=== PATIENT | female | born 1950 | race Caucasian/White ===

== ENCOUNTER 2019-02-03 16:39 | Inpatient (IN) | payer MEDICARE ==
[~2019-02-03 16:39] MED LIST: ISOVUE-370 76%-LOCM 1 ML ONE
[2019-02-03 17:25] LABS: #Lymphocytes 1.2 thou/uL (1.20-3.40); #Monocytes 0.7 thou/uL (0.11-0.59); #Neutrophils 16.2 thou/uL (1.40-6.50); %Basophils 0.2 % (0.0-1.0); %Eosinophils 0.2 % (0.0-10.0); %Lymphocytes 6.4 % (21.0-51.0); %Monocytes 3.8 % (0.0-10.0); %Neutrophils 89.5 % (42.0-75.0); Hemoglobin 15.6 g/dL (12.0-16.0); Mean Corpuscular HGB CONC 34.8 g/dL (32.0-36.0); Mean Corpuscular Hemoglobin 31.3 pg (27.0-31.0); Mean Platelet Volume 6.7 fL (7.4-10.4); Platelet Count 271 thou/uL (130-400); RBC Distribution Width 11.7 % (11.5-14.5); Red Blood Cell (RBC) Count 4.98 mill/uL (4.20-5.40); White Blood Cell (WBC) Count 18.1 thou/uL (4.8-10.8)
[2019-02-03 17:47] LABS: ALT (SGPT) 18 U/L (8-55); AST (SGOT) 23 U/L (5-34); Albumin 4.3 g/dL (3.4-4.8); Alkaline Phosphatase 105 U/L (40-110); Anion Gap 16 mmol/L (10-20); BUN (Urea Nitrogen) 14 mg/dL (9.8-20.1); Bilirubin, Total 0.6 mg/dL (0.2-1.2); Calc. Creatinine Clearance 0 mL/min (70-130); Calcium 9.6 mg/dL (7.8-10.44); Carbon Dioxide 24 mmol/L (23-31); Chloride 104 mmol/L (98-107); Estimated GFR-MDRD 75; Globulin 3.3 g/dL (2.4-3.5); Glucose 118 mg/dL (80-115); Potassium 3.8 mmol/L (3.5-5.1); Protein, Total 7.6 g/dL (6.0-8.3); Sodium 140 mmol/L (136-145)
[2019-02-03] MEDS ORDERED: Famotidine/PF 20 mg/2ml Vial ONE (18:02)
[2019-02-03] MEDS ORDERED: Ondansetron PF 4 MG/2 ML Vial ONE (18:02)
[2019-02-03 19:15] LABS: Bacteria/HPF None Seen HPF (None Seen); Bilirubin Negative (Negative); Blood, Urine 2+ (Negative); Clarity Clear (Clear); Glucose, Urine (Dipstick) Normal (Negative); Leukocyte 75 Leu/uL (Negative); Nitrite Negative (Negative); Protein, Urine (Dipstick) Negative (Neg-Trace); Squamous Epithelial 0-3 HPF (0-3); Urobilinogen Normal mg/dL (Less than 2)
[2019-02-03] MEDS ORDERED: Acetaminophen 650 MG Suppository PR PRN (19:40)
[2019-02-03] MEDS ORDERED: Acetaminophen 325 MG TAB PO PRN (19:40)
[2019-02-03] MEDS ORDERED: Ondansetron ODT 4 MG TAB PO PRN (19:40)
[2019-02-03] MEDS ORDERED: Ondansetron PF 4 MG/2 ML Vial IVP PRN (19:40)
[2019-02-03] MEDS ORDERED: metroNIDAZOLE 500 MG/100 ML BAG ONE (19:44)
[2019-02-03] MEDS ORDERED: Pantoprazole 40 MG VIAL ONE (19:47)
--- NOTE | 2019-02-03 20:40 | CT ---
CT ABDOMEN AND PELVIS WITH CONTRAST: Indications: Abdominal pain, vomiting, diarrhea. Comparison: None. FINDINGS: Images through the lung bases reveal pleural based stranding in the right posterior lung base with a nodular appearance measuring up to 12 mm. This is probably pleural based atelectasis, however, follow up is recommended. Review of the liver shows a small cyst in the superior right lobe under the diaphragm. This measures approximately 1 cm. A small 1 cm left lobe cyst is also noted superiorly. Liver, spleen, and pancreas otherwise unremarkable. Post cholecystectomy clips. Adrenal glands normal. Kidneys unremarkable. Tiny cystic lesion subcentimeter inferior right kidney. Tiny subcentimeter low density lesion anterior left kidney. Small bowel loops are normal caliber. Nonspecific fluid filled distention seen in the mid small bowel . Fluid dense stool in the right colon consistent with the history of diarrhea. There is evidence of mural thickening surrounding inflammatory change involving the left colon extend ing into the sigmoid. The left colon is nondistended and the colon wall is suboptimally evaluated due to the lack of distention. Findings suggest colitis involving the left colon. Aorta is calcified but normal caliber. IMPRESSION: 1. Evidence of mural thickening and surrounding inflammatory haziness involving the left colon and si gmoid suggesting colitis. 2. Pleural based nodular opacity in the posterior right lung base, probably atelectasis. Follow up re commended. Code LN POS: OFF
[2019-02-03] MEDS: metroNIDAZOLE 500 MG in Premix Bag 1 BAG IVPB SCH ×3 (20:53→21:05)
[2019-02-03 21:29] VITALS: BMI 35.2
[2019-02-04] MEDS: Sodium Chloride 0.9% 1,000 ML IV SCH ×2 (00:22→16:15)
[2019-02-04] MEDS: metroNIDAZOLE 500 MG in Premix Bag 1 BAG IVPB SCH ×3 (03:10→20:12)
[2019-02-04 05:29] LABS: #Lymphocytes 2.2 thou/uL (1.20-3.40); #Monocytes 1.3 thou/uL (0.11-0.59); %Basophils 0.3 % (0.0-1.0); %Eosinophils 0.3 % (0.0-10.0); %Lymphocytes 14.7 % (21.0-51.0); %Monocytes 9.1 % (0.0-10.0); %Neutrophils 75.6 % (42.0-75.0); Hemoglobin 14.1 g/dL (12.0-16.0); Mean Corpuscular Hemoglobin 30.7 pg (27.0-31.0); Mean Corpuscular Volume 90.2 fL (78.0-98.0); Mean Platelet Volume 6.6 fL (7.4-10.4); Platelet Count 253 thou/uL (130-400); RBC Distribution Width 11.8 % (11.5-14.5); Red Blood Cell (RBC) Count 4.61 mill/uL (4.20-5.40); White Blood Cell (WBC) Count 14.6 thou/uL (4.8-10.8)
[2019-02-04 05:52] LABS: Anion Gap 10 mmol/L (10-20); BUN (Urea Nitrogen) 9 mg/dL (9.8-20.1); Calc. Creatinine Clearance 108 mL/min (70-130); Calcium 8.9 mg/dL (7.8-10.44); Carbon Dioxide 27 mmol/L (23-31); Chloride 106 mmol/L (98-107); Estimated GFR-MDRD 81; Glucose 112 mg/dL (80-115); Potassium 3.6 mmol/L (3.5-5.1); Sodium 139 mmol/L (136-145)
--- NOTE | 2019-02-04 08:18 | HP ---
PRIMARY CARE PHYSICIAN: Not reported. CODE STATUS: Full code. TIME OF EVALUATION: 9 p.m. CHIEF COMPLAINT: Abdominal pain. HISTORY OF PRESENT ILLNESS: This is a 68-year-old female patient with past medical history of cardiac cath in 2016, sleep apnea, hypothyroidism, hyperlipidemia, hypertension, asthma, came to the hospital after having moderate gradually worsening abdominal pain associated with diarrhea, nausea, and vomiting. Also she had bright red blood seen in the stools, no clear triggers. No alleviating factors. REVIEW OF SYSTEMS: CONSTITUTIONAL: No fever, no chills, no generalized weakness. RESPIRATORY: No cough, no shortness of breath. CARDIOVASCULAR: No chest pain or palpitation. GASTROINTESTINAL: The patient has nausea, vomiting, abdominal pain and bloody diarrhea. BOAT JOINER: No dizziness, headache or feeling lightheaded. GENITOURINARY: No burning urination. EXTREMITIES: No leg swelling. All other systems were reviewed and negative except for the findings mentioned above. PAST MEDICAL HISTORY: Positive for the findings mentioned in HPI. PAST SURGICAL HISTORY: Knee surgery, heart catheterization, left knee replacement, bladder removal, cholecystectomy. PSYCHIATRIC HISTORY: Depression. FAMILY HISTORY: Reviewed, noncontributory for current presentation. SOCIAL HISTORY: The patient lives with . KNOWN ALLERGIES: Dilaudid. REPORTED MEDICATION: 1. Levothyroxine. 2. Quinapril. 3. Ranitidine. 4. Montelukast. 5. Oxybutynin. 6. Aspirin. 7. Citalopram. PHYSICAL EXAMINATION: VITAL SIGNS: On presentation, blood pressure 129/66, heart rate 82, respiratory rate was 16, temperature 98.3, pain 8/10, O2 saturation was 99% on room air, the blood pressure remained occasionally uncontrolled, last one was 149, previous 154. GENERAL APPEARANCE: The patient is alert, oriented, no acute distress. HEENT: Eyes, normal conjunctivae. Moist oral mucosa. Anicteric. No JVD. RESPIRATORY: Bilateral air entry. No rales. No wheezes. Symmetric expansion. CARDIOVASCULAR: Normal rate. Regular rhythm. No murmurs. No gallop. No edema. ABDOMEN: Soft, normal bowel sounds. The patient has abdominal tenderness mostly in the lower abdomen. MUSCULOSKELETAL: Baseline range of motion and strength. SKIN: Warm, intact. No pallor. No rash. No redness. Capillary refill seems to be intact. NEUROLOGIC: No evidence of any new focal weakness. Cranial nerves seems to be intact. PSYCHIATRIC: The patient is in good mood. No anxiety. Optimal judgment. IMAGING: EKG was reviewed. The patient has a first-degree AV block, minimal voltage criteria for LVH. Per radiologist, pleural base thickening, possible colitis. Abdomen and pelvis CT, the patient has areas of mural thickening and surrounding inflammatory haziness involving the left colon and sigmoid suggesting colitis. Pleural-based lobular opacities in the posterior right lung base, probably atelectasis, followup is recommended. LABORATORY DATA: Reviewed. The patient has white count of 18.1, hemoglobin 15.6, MCV 90, platelet count 271. Chemistry: Sodium 140, potassium 3.8, chloride 104 , carbon dioxide 24, anion gap 16, BUN 14, creatinine 0.76, GFR 75, glucose 118. Lactic acid 1.3, calcium 9.6, total bilirubin 0.6. LFTs were negative. Albumin 4.3. Urine was done, was mildly positive for some RBCs, scant white count with 4 to 6 in urine. ASSESSMENT AND PLAN: The patient will be placed in the hospital follow medical problems. 1. She has acute colitis. The patient will be started on antibiotics. We will continue for now. We will follow stool testing. No history of antibiotics. She is at risk for Clostridium difficile colitis. 2. History of hypertension. The last blood pressure was 150/73, so it is uncontrolled. Reconcile home medications, adjust treatment as needed. We will not treat aggressively as the patient has risk for sepsis. 3. Deep venous thrombosis prophylaxis. 4. Hyperlipidemia. Low-cholesterol diet is advised. 5. History of asthma, this is chronic, seems stable. Reconcile home medications. 6. Hypothyroidism, continue hormone replacement. 7. _DVT prophylaxis . Job ID: [id number] [facility]
[2019-02-04 12:07] LABS: Hemoglobin 13.6 g/dL (12.0-16.0)
[2019-02-04] MEDS ORDERED: Sodium Chloride 0.9% 1,000 ML IV SCH ×2 (15:26→19:48)
[2019-02-04] MEDS: Famotidine 20 MG TAB PO SCH (20:12)
[2019-02-04] MEDS ORDERED: Saccharomyces boulardii 250 MG CAP PO SCH (21:00)
[2019-02-04] MEDS ORDERED: Rosuvastatin 20 MG TAB PO SCH (21:00)
--- NOTE | 2019-02-04 21:56 | CON ---
DATE OF CONSULTATION: REASON FOR CONSULT: Bloody diarrhea. HISTORY OF PRESENT ILLNESS: Ms. Clinton is a pleasant 68-year-old female. She is from [place]. She was here for a wedding of her grandson and spent most of the day, Monday, outside in the heat under a tent. She did fine early Monday morning, woke up and went to breakfast at a hotel. There, she had some coffee and a blueberry scone. Then about an hour later, began to feel violently ill and developed nausea, vomiting, and diarrhea. Sometime yesterday or early this morning, she developed to have seeing some red blood in the stools. She has had associated cramping in the lower abdomen. She feels much better today than she did yesterday. She has had no fever or chills. She denies taking recent antibiotics. She has had no sick contacts. She is not aware of anyone at breakfast or the wedding being sick. She has never had experiences like this in the past. She has had no rashes, myalgias, or arthralgias. She reports that she had a normal colonoscopy within the past year that was precipitated by a positive fecal occult blood test. PAST MEDICAL HISTORY: Cardiac cath in 2016. Sleep apnea, hypothyroidism, hyperlipidemia, hypertension, asthma. PAST SURGICAL HISTORY: Knee surgery, heart catheterization, left knee replacement, bladder surgery and cholecystectomy. REVIEW OF SYSTEMS: Negative for chest pain, shortness of breath, dyspnea on exertion, dysuria, frequency, urgency, nausea, arthralgias, fever, or chills. SOCIAL HISTORY: No smoking, occasional etoh, no drugs. She lives in [place]. She is originally from [place] here for a wedding. ALLERGIES: NONE. SOCIAL HISTORY: She does not smoke or use drugs. She drinks alcohol rarely. MEDICATIONS: At home, 1. Levothyroxine. 2. Quinapril. 3. Ranitidine. 4. Montelukast. 5. Oxybutynin. 6. Aspirin. 7. Escitalopram. Medications here, 1. Levothyroxine. 2. Pepcid. 3. Lexapro. 4. Cipro. 5. Flagyl. 6. Oxybutynin. 7. Crestor. 8. Florastor p.r.n. 9. Normal saline at 75 an hour. PHYSICAL EXAMINATION: VITAL SIGNS: She has been afebrile since admission, T max 98.7, pulse 70, blood pressure is 124/62, O2 saturation 94% on room air. GENERAL: She is resting comfortably in bed. She has no distress. HEENT: Oropharynx is slightly dry. She is nonicteric. Conjunctivae and sclerae are clear. NECK: Supple. LUNGS: Clear. HEART: Regular rate and rhythm without clicks, rubs, or murmurs. ABDOMEN: Soft. There is mild tenderness down in the left lower quadrant. There is no rebound. There is no guarding. Bowel sounds are positive. LABORATORY DATA: White count was 18,000 yesterday, 14,000 today. Hemoglobin was 15.6 yesterday, 13.6 and 11 today, it was 14.1 at 5 this morning, platelet count is 253. Basement profile is normal with a BUN and creatinine of 9 and 0.7, it was 14 and 0.76 yesterday. Liver function tests normal. Lipase was not checked. Stool studies, occult blood positive. No cultures have been drawn. ASSESSMENT: This is an episode of acute diarrhea and vomiting, possibly food related or possibly related to acute ischemic colitis from being out in the heat all day the day prior to her symptoms starting. Alternatively, she could have a viral illness or food-borne illness that led to ischemic colitis. I do not think she has diverticulitis based on her CAT scan, there is a long segment of thickened colon and this is from colitis, not diverticulitis. Whether it is infectious or ischemic is not known and is not going to be known even with endoscopy. At this time, I would order stool for inter-invasive E coli and Campylobacter and routine cultures to make sure there is no inter-invasive colonic infection, but would continue to treat her as you are with aggressive IV fluid resuscitation, start her on clear liquids. Hopefully, she will be able to go home within 24-48 hours. Job ID: [id number] [facility]
--- NOTE | 2019-02-04 22:27 | PRG ---
DATE OF SERVICE: 02/04/2019 SUBJECTIVE: The patient was seen and examined. Abdominal discomfort is improving. She had four episodes of loose bowel movement with small amount of blood. She denies significant nausea. No fever or chills reported. OBJECTIVE: VITAL SIGNS: Temperature 98.3, pulse 69, respirations 16, blood pressure 125/58, O2 saturation 96% on room air. GENERAL: A 68-year-old female in no apparent distress. LUNGS: Clear to auscultation bilaterally. No wheezing, rales, or rhonchi. HEART: S1, S2 present. Regular rate and rhythm. No rubs or gallops. ABDOMEN: Soft. There is mild tenderness in the lower quadrant without any guarding or rigidity. Bowel sounds are present. EXTREMITIES: No edema or calf tenderness. NEUROLOGIC: Grossly nonfocal. Moves all 4 extremities. PSYCHIATRY: Normal affect. Alert, awake, oriented x3. MEDICATIONS: Current medications were reviewed. The patient is on IV ciprofloxacin and Flagyl along with IV fluids. LABORATORY FINDINGS: WBC improved to 14.6 from 18.1. Hemoglobin 13.6 from 15.6. BUN 9, creatinine 0.71 with sodium 136, potassium 3.9. Urinalysis showed 11-20 rbc's with 4-6 wbc's. Stool for occult blood was positive. CT scan of the abdomen and pelvis by my review showed colitis involving the left colon and sigmoid colon. It also showed pleural based nodular opacity in the posterior right lung base, probably atelectasis. IMPRESSION: 1. Sepsis secondary to colitis. 2. Lower gastrointestinal bleeding secondary to #1. 3. Acute blood loss secondary to #2. 4. Chronic kidney disease, stage 2. 5. Hypertension. 6. Obesity with a BMI of 35.2. 7. Overactive bladder. 8. Hypothyroidism. 9. Depression, mild, stable. 10. Hyperlipidemia. 11. Obstructive sleep apnea. 12. Mild intermittent asthma. 13. Pleural based nodular opacity in the posterior right lung base, probably atelectasis. PLAN: IV ciprofloxacin and Flagyl will be continued. We will add probiotics. Reduce IV flow rate. Continue Lexapro, levothyroxine, and Singulair. Continue Crestor. We will reduce lisinopril dose to 20 mg daily. Await stool workup. DISPOSITION: The patient is from [place]. She has a flight at 4:00 p.m. from [place] to [place], [place]. Will probably discharge in a.m. if okay with Gastroenterology Service. Antibiotics were called into the Pharmacy. We will hold aspirin for now. Recheck labs in a.m. Job ID: [id number]
[2019-02-05] MEDS: metroNIDAZOLE 500 MG in Premix Bag 1 BAG IVPB SCH (05:15)
[2019-02-05] MEDS ORDERED: Levothyroxine Sodium 112 MCG TAB PO SCH (06:00)
[2019-02-05 06:33] LABS: #Eosinphils 0.3 thou/uL (0.0-0.7); #Lymphocytes 2.2 thou/uL (1.20-3.40); #Monocytes 0.9 thou/uL (0.11-0.59); #Neutrophils 9.1 thou/uL (1.40-6.50); %Basophils 0.3 % (0.0-1.0); %Eosinophils 2.4 % (0.0-10.0); %Lymphocytes 17.4 % (21.0-51.0); %Monocytes 7.3 % (0.0-10.0); %Neutrophils 72.6 % (42.0-75.0); Mean Corpuscular HGB CONC 32.9 g/dL (32.0-36.0); Mean Corpuscular Hemoglobin 30.3 pg (27.0-31.0); Mean Platelet Volume 6.6 fL (7.4-10.4); Platelet Count 211 thou/uL (130-400); RBC Distribution Width 11.7 % (11.5-14.5); Red Blood Cell (RBC) Count 4.28 mill/uL (4.20-5.40); White Blood Cell (WBC) Count 12.5 thou/uL (4.8-10.8)
[2019-02-05 06:55] LABS: ALT (SGPT) 10 U/L (8-55); AST (SGOT) 15 U/L (5-34); Albumin 3.4 g/dL (3.4-4.8); Alkaline Phosphatase 60 U/L (40-110); Anion Gap 12 mmol/L (10-20); BUN (Urea Nitrogen) 6 mg/dL (9.8-20.1); Bilirubin, Total 0.8 mg/dL (0.2-1.2); Calc. Creatinine Clearance 122 mL/min (70-130); Calcium 8.6 mg/dL (7.8-10.44); Carbon Dioxide 24 mmol/L (23-31); Chloride 108 mmol/L (98-107); Estimated GFR-MDRD Greater than 90; Globulin 2.5 g/dL (2.4-3.5); Glucose 95 mg/dL (80-115); Magnesium 1.9 mg/dL (1.6-2.6); Potassium 3.5 mmol/L (3.5-5.1); Protein, Total 5.9 g/dL (6.0-8.3); Sodium 140 mmol/L (136-145)
[2019-02-05 08:56] VITALS: BP 159/87; TEMP 98.7
[2019-02-05] MEDS ORDERED: Lisinopril 20 MG TAB PO SCH ×2 (09:00)
[2019-02-05] MEDS ORDERED: Montelukast Sodium 10 mg Tablet PO SCH (09:00)
[2019-02-05] MEDS ORDERED: Escitalopram Oxalate 10 mg Tablet PO SCH (09:00)
[2019-02-05] MEDS ORDERED: Oxybutynin 5 MG TAB PO SCH (09:00)
[2019-02-05] MEDS: Famotidine 20 MG TAB PO SCH (09:46)
--- NOTE | 2019-02-06 01:55 | DIS ---
DATE OF ADMISSION: 02/04/2019 DATE OF DISCHARGE: 02/05/2019 DISCHARGE DISPOSITION: Home. FOLLOWUP: 1. Follow up with primary care physician in [place], [place] in 1 week. 2. Follow up with Dr. Peter Avery in 2 to 3 weeks. ALLERGIES: THE PATIENT IS ALLERGIC TO DILAUDID. DISCHARGE MEDICATIONS: 1. Ciprofloxacin 250 mg b.i.d. for next 5 days. 2. Flagyl 500 mg 3 times daily for next 5 days. 3. All other home medications were left unchanged. The patient was advised to restart aspirin after three days. An outpatient gastroenterology followup was recommended. The patient was seen and examined on the day of discharge. Denies any new complaints. Abdominal discomfort has significantly improved. She denies nausea or vomiting. She had some loose stool last night with small amount of blood. BRIEF HOSPITAL COURSE: The patient is a 68-year-old female who was visiting from [place], presented to the hospital with bloody diarrhea along with abdominal discomfort. CT scan of the abdomen and pelvis was consistent with evidence of mural thickening with surrounding inflammatory haziness involving the left colon and sigmoid suggesting colitis. The patient was monitored on the medical floor. She was placed on IV fluids, clear liquid diet, as well as IV ciprofloxacin and Flagyl. Her WBC count improved from 18.1 to 12.5. A stool sample was never obtained from the patient. She was evaluated by Gastroenterology Service. Her hemoglobin remained stable. She appears stable for discharge. SIGNIFICANT LABORATORY DATA: Hemoglobin on admission 15.6, at discharge, 13.0. BUN 6 and creatinine 0.63. LFTs in normal range. Stool for occult blood was positive. FINAL DIAGNOSES: 1. Sepsis secondary to in secondary to colitis, suspected infectious. 2. Lower GI bleeding secondary to #1. 3. Acute blood loss secondary to GI bleeding. 4. Hypertension. 5. Chronic kidney disease, stage 2. 6. Obesity with a BMI of 35.2. 7. Overactive bladder. 8. Hypothyroidism. 9. Depression, mild, stable. 10. Hyperlipidemia. 11. Obstructive sleep apnea. 12. Mild intermittent asthma. 13. Pleural based nodular opacity in the posterior right lung base, probably atelectasis. Primary care physician advised to follow. PLAN: Plan was discussed with the patient in details. She stated understanding. Job ID: [id number]
== END 2019-02-05 10:16 | disposition home or self-care (01) | DRG 872 ==
LOC: ERS 16:39 → ONC 20:23 → OBSVTOIN 02-04 15:25
PROVIDERS: ADMIT Hospitalist; ATTEND Hospitalist
DX: A41.9 Sepsis, unspecified organism (principal); A09 Infectious gastroenteritis and colitis, unspecified; D62 Acute posthemorrhagic anemia; J98.11 Atelectasis; I12.9 Hypertensive chronic kidney disease with stage 1 through stage 4 chronic kidney disease, or unspecified chronic kidney disease; N18.2 Chronic kidney disease, stage 2 (mild); N32.81 Overactive bladder; E03.9 Hypothyroidism, unspecified; F32.9 Major depressive disorder, single episode, unspecified; G47.33 Obstructive sleep apnea (adult) (pediatric); Z96.652 Presence of left artificial knee joint; G47.30 Sleep apnea, unspecified; E78.5 Hyperlipidemia, unspecified; J45.20 Mild intermittent asthma, uncomplicated; E66.9 Obesity, unspecified; Z68.35 Body mass index [BMI] 35.0-35.9, adult; Z90.710 Acquired absence of both cervix and uterus; Z90.49 Acquired absence of other specified parts of digestive tract; Z95.1 Presence of aortocoronary bypass graft; J45.909 Unspecified asthma, uncomplicated
CPT/HCPCS: 36415; 74177; 80048; 80053; 81003; 81015; 82274; 83605; 83735; 85025; 86850; 86900; 86901; 93005; 96361; 96365; 96375; C9113; J0744; J2405; Q9966; S0028